=== PATIENT | female | born 1975 | race Caucasian/White ===

== ENCOUNTER → 2023-03-18 | Day surgery (SDC) | payer OTHER ==
[~2023-03-18] VITALS: Ht 162.6 cm; Wt 65.8 kg
[~2023-03-18] MED LIST: BUPIVACAINE HCL/PF 0.5% (5MG/ML) 10ML ONE; CEFAZOLIN SODIUM 1000MG/VIAL ONE; CHOL100062 PO; CYAN250010 PO; DEXAMETHASONE 4MG/ML 1ML VIAL ONE; FENTANYL CITRATE/PF 50MCG/ML 2ML VIAL ONE; HYDROMORPHONE HCL/PF 2MG/ML CPJ IV PRN; LABETALOL 5MG/ML SYR 20 MG/4 ML SYRINGE IV PRN; MEPERIDINE HCL/PF 25MG/ML CPJ IV PRN; MIDAZOLAM HCL 2 MG/2 ML VIAL ONE; ONDANSETRON HCL 4MG/2ML INJ IV PRN; ONDANSETRON HCL 4MG/2ML INJ ONE; PROPOFOL 200MG/20ML VIAL IV ONE; SKIN ADHESIVE 0.7 GM EA TOP ONE; SODIUM CHLORIDE 0.9% 1,000 ML IV SCH
[2023-03-18 06:17] LABS: UCG QC LOT# 745097; UCG SCREEN NEGATIVE
[2023-03-18 09:54] VITALS: BP 111/72; PULSE 88; RESP 16
[2023-03-18] MEDS: HYDROCODONE/ACETAMINOPHEN 5/325MG TABLET PO NR (09:54)
== END | disposition home or self-care (01) ==
LOC: OR 05:43
PROVIDERS: ATTEND Surgery
DX: D21.6 Benign neoplasm of connective and other soft tissue of trunk, unspecified (principal); E78.00 Pure hypercholesterolemia, unspecified; Z79.899 Other long term (current) drug therapy; Z98.890 Other specified postprocedural states
CPT/HCPCS: 21931; 81025; 82962; J3010; J3490; J0690; J1100; J2250; J2405; J2704